=== PATIENT | male | born 1955 | race Caucasian/White ===

== ENCOUNTER → 2020-01-03 | Day surgery (SDC) | payer BC ==
[~2020-01-03] MED LIST: BREO ELLIPTA 11 EACH INH; LISINOPRIL10 MG PO; LORCET 5-325 M1 EACH PO; METHOCARBAMOL500 M2 PO; OMEPRAZOLE 20 M20 M1 PO; PERCOCET 5-3251 EACH PO
--- NOTE | ~2020-01-03 | OP ---
[address] [address] OPERATIVE REPORT Name: INDIO BARRON Room: [facility].#: [id number] Admission: 01/03/20 Attend Phys: Dharmesh Connolly II Discharge: Date of : 57 Report #: [id number] THIS REPORT FOR: //name// cc: Tommie Limon Vincent DO ~ CC: Dharmesh Limon DATE OF SERVICE: 01/03/2020 PREOPERATIVE DIAGNOSIS: Left proximal humerus fracture with displacement and comminution. POSTOPERATIVE DIAGNOSIS: Left proximal humerus fracture with displacement and comminution. PROCEDURE: Open reduction and internal fixation of left proximal humerus fracture. SURGEON: Dharmesh Connolly II, DO. REGISTRATION REPRESENTATIVE: ARTEMIO Jolley. ANESTHESIA: Per operative record. ESTIMATED BLOOD LOSS: Minimal. ANTIBIOTICS: Per operative record. DRAINS: None. COMPLICATIONS: None. CONDITION OF THE PATIENT: Stable to recovery room. IMPLANTS USED: Lucio proximal humerus plate. DESCRIPTION OF PROCEDURE: The patient was taken to the operative suite and placed supine on the operating table, given appropriate anesthesia. The patient's affected shoulder was sterilely prepped and draped in modified beach chair position and all bony prominences were well padded. Surgery began by an anterior incision over the deltopectoral region of the left proximal shoulder. This was carried down to the subcutaneous tissues. The deltopectoral approach was then performed, retracting laterally with the cephalic vein. The fracture was then visualized to the lateral aspect of the humerus, once again reduced in an open fashion utilizing C-arm and reduction forceps as well as a Salix. This [address] [address] OPERATIVE REPORT Name: INDIO BARRON Room: [facility].#: [id number] Admission: 01/03/20 Attend Phys: Dharmesh Connolly II Discharge: Date of : 57 Report #: [id number] was then held with pointed reduction forceps and the plate was applied laterally. This was then secured utilizing 2 K wires and visualized with C-arm to be in excellent position. The sliding screw was then placed and the plate was secured to the humerus and appropriate locking screw was then applied up into the head as well as down the shaft. Final x-rays were taken of both the internal and external rotated views showing excellent purchase of all screws and excellent position on fluoroscopic guidance. Final irrigation was then performed. The deltopectoral approach was then closed utilizing 0 Vicryl in running fashion. Skin was closed with 2-0 Vicryl and running Monocryl stitch. Dermabond and sterile dressing applied as well as a sling. The patient was transported to recovery room in stable condition. Counts were correct throughout the procedure. By: [id number] Jorge L Connolly II, DO /nt
[2020-01-03 09:57] LABS: HEMATOCRIT 39.4 % (42.0-52.0); HEMOGLOBIN 13.1 gm/dL (14.0-18.0); MCHC 33.3 g/dL (28.0-37.0); MCV 81.1 fL (80.0-100.0); MPV 8.8 fl. (7.2-11.1); RBC 4.86 mil/uL (4.50-6.00); RDW-CV 16.5 % (10.5-14.5); WBC 8.6 thou/uL (4.0-11.0)
[2020-01-03 09:59] LABS: CALCIUM 8.8 mg/dL (8.5-10.1); CREATININE 1.2 mg/dL (0.6-1.3); POTASSIUM 3.9 mmol/L (3.5-5.1)
--- NOTE | 2020-01-03 10:17 | EKG ---
[place] [address] ELECTROCARDIOGRAM REPORT Name: INDIO BARRON Room: [facility]#: [id number] Admission: 01/03/20 Attend Phys: Dharmesh Connolly, Discharge: Date of : 57 Date of Service: 01/03/20 1008 Report #: [id number] THIS REPORT FOR: //name// [facility] Test Date: 2020-01-03 Test Time: 10:08:10 Pat Name: INDIO BARRON Department: Room: Gender: Bus Girl: [facility] : 1955 Requested By: Dharmesh Connolly Order Number: [id number] Annie MD: Josh Harris Measurements Intervals [place] Rate: 67 P: 6 MI: 147 QRS: -44 QRSD: 106 T: 36 QT: 397 QTc: 419 Interpretive Statements Sinus rhythm Left axis deviation Borderline low voltage, extremity leads Baseline wander in lead(s) V4 No previous ECG available for comparison Electronically Signed On 01-03-2020 10:17:10 CDT by Josh Harris [email or web address] <ELECTRONICALLY SIGNED> By: Josh Harris MD, [facility] 01/03/20 1017 1008 1008 Josh Harris MD, [facility] /EPI
== END | disposition home or self-care (01) ==
LOC: M.SUR 09:16
PROVIDERS: ATTEND Orthopaedic Surgery
DX: S42.292A Other displaced fracture of upper end of left humerus, initial encounter for closed fracture (principal); M25.512 Pain in left shoulder; M25.412 Effusion, left shoulder; I10 Essential (primary) hypertension; J43.9 Emphysema, unspecified; Z98.890 Other specified postprocedural states; Z79.899 Other long term (current) drug therapy; Z20.828 Contact with and (suspected) exposure to other viral communicable diseases; X58.XXXA Exposure to other specified factors, initial encounter; Y93.89 Activity, other specified; Y92.89 Other specified places as the place of occurrence of the external cause; Y99.8 Other external cause status